=== PATIENT | female | born 1950 | race Caucasian/White ===

== ENCOUNTER 2020-02-08 15:40 | Outpatient (CLI) | payer MEDICARE, SELFPAY ==
--- NOTE | ~2020-02-08 | XR_ITS ---
XR knee LT 3V DATE: 02/08/2020 16:22 INDICATION: Left lateral knee pain for one month. No known injury. TECHNIQUE: 3 views COMPARISON: None FINDINGS: There is prominent distention of suprapatellar bursa consistent with knee joint effusion. N o fracture or dislocation, periosteal reaction or bone destruction, radiopaque intra-articular loose body or chondrocalcinosis is detected. There is minimal periarticular spurring of the patella. There is slight periarticular spurring at the medial compartment and minimal loss of height of medial compartment joint space. IMPRESSION: Prominent knee joint effusion Mild osteoarthritis Reviewed, dictated and finalized at location B.
--- NOTE | ~2020-02-08 | XR_ITS ---
XR shoulder RT min 2V DATE: 02/08/2020 16:21 INDICATION: Chronic right shoulder pain. Limited range of motion. No injury. TECHNIQUE: 4 views COMPARISON: None FINDINGS: Diffuse osteopenia. Osteoarthritis at the glenohumeral joint Osteopenia. Multiple old healed right rib fractures. Approximate 5 mm foreign body overlies the lateral right shoulder soft tissues. IMPRESSION: Right glenohumeral joint osteoarthritis Osteopenia Reviewed, dictated and finalized at location B.
== END 2020-02-08 15:41 | disposition home or self-care (01) ==
PROVIDERS: PCP Family Medicine
DX: M25.511 Pain in right shoulder (principal); G89.29 Other chronic pain; M25.462 Effusion, left knee; M17.12 Unilateral primary osteoarthritis, left knee; M85.861 Other specified disorders of bone density and structure, right lower leg
CPT/HCPCS: 73030; 73562

== ENCOUNTER 2024-10-18 10:27 | Emergency (ER) | payer MEDICARE, SELFPAY ==
[2024-10-18 10:52] VITALS: BP 130/105; PULSE 96; RESP 18; TEMP 36.5; O2SAT 97
[2024-10-18 12:00] LABS: Basophils Absolute Auto 0.1 K/mm3 (0.0-0.1); Basophils Percent Auto 0.4 % (0.2-1.2); Eosinophils Percent Auto 0.1 % (0-4.4); Hematocrit 39.7 % (37.0-47.0); Hemoglobin 13.6 g/dL (12.0-15.0); Immature Granulocyte Absolute 0.09 K/mm3 (0.00-0.031); Immature Granulocyte Percent A 0.5 % (0-0.5); Lymphocytes Absolute Auto 1.72 K/mm3 (0.9-3.2); Lymphocytes Percent Auto 9.8 % (18.3-44.2); Mean Corpuscular HGB Conc 34.3 g/dl (32-36); Mean Corpuscular Hemoglobin 29.4 pg (26-34); Mean Corpuscular Volume 85.9 fl (80-100); Mean Platelet Volume 9.4 fl (7.4-10.4); Monocytes Absolute Auto 1.5 K/mm3 (0.1-0.6); Monocytes Percent Auto 8.7 % (2.6-8.5); Neutrophils Absolute Auto 14.1 K/mm3 (1.3-6.7); Neutrophils Percent Auto 80.5 % (45.5-73.1); Platelet Count Result 387 k/mm3 (150-375); Red Blood Count 4.62 M/mm3 (4.2-5.4); Red Cell Distribution Width 13.2 % (11.5-14.5); White Blood Count 17.5 K/mm3 (4.5-10.0)
[2024-10-18 12:09] LABS: Alanine Aminotransferase 16 U/L (6-35); Albumin Level 4.4 g/dL (3.5-5.1); Alkaline Phosphatase 102 U/L (38-126); Anion Gap 8 mmol/L (4-12); Aspartate Amino Transferase 22 U/L (14-36); Bilirubin,Total 0.9 mg/dL (0.2-1.3); Blood Urea Nitrogen 7 mg/dL (7-17); Calcium 9.6 mg/dL (8.4-10.2); Carbon Dioxide 23 mmol/L (22-30); Chloride 104 mmol/L (98-107); Estimated CRCL calculation 56 ml/min; Estimated Glomerular Filt Rate > 60; Glucose 140 mg/dL (65-110); Potassium 3.6 mmol/L (3.4-5.0); Sodium 135 mmol/L (137-145)
--- NOTE | 2024-10-18 13:05 | ED.DENTAL ---
HPI - Dental/Oral General Chief complaint: Dental/Oral Stated complaint: broken tooth/ left eye swelling Time Seen by Provider: 10/18/24 12:28 Source: patient Mode of arrival: ambulatory Limitations: no limitations History of Present Illness HPI Narrative: Left upper gum dental pain started 6 months ago, unable to find a dentist. She denies any fever, chills, headache, trouble breathing or swallowing or vision change. Related Data Allergies Allergy/AdvReac Type Severity Reaction Status Date / Time No Known Allergies Allergy Verified 10/18/24 10:55 Review of Systems Review of Systems: All systems reviewed & are unremarkable except as noted in HPI and below Exam Narrative: General appearance: Well-developed, well-nourished Skin: Normal color Head: Normocephalic, nontraumatic Eyes: Clear conjunctiva ENT: Left upper gum showing diffuse swelling, no abscess formation, dental caries and fracture. Neck: Supple, nontender Chest and respiratory: Airway patent, no respiratory distress, no accessory muscle use Heart: Regular rate/rhythm Neurologic: Alert and oriented ?3, [employer] is normal as tested, no gross motor deficit Course Vital Signs Vital signs: Vital Signs Temperature 36.5 C 10/18/24 10:52 Pulse Rate 96 10/18/24 10:52 Respiratory Rate 18 10/18/24 10:52 Blood Pressure 130/105 H 10/18/24 10:52 Pulse Oximetry 97 10/18/24 10:52 Oxygen Delivery Room Air 10/18/24 10:52 Temperature 36.5 C 10/18/24 10:52 Pulse Rate 96 10/18/24 10:52 Respiratory Rate 18 10/18/24 10:52 Blood Pressure 130/105 H 10/18/24 10:52 Pulse Oximetry 97 10/18/24 10:52 Oxygen Delivery Room Air 10/18/24 10:52 MDM - Dental/Oral MDM Narrative Medical decision making narrative: Differential diagnosis include gingivitis, dental caries, infection Discharged home Flagyl and penicillin VK Differential Diagnosis Differential diagnosis: Likely other (As above) Lab Data 10/18/24 11:45 10/18/24 11:45 Labs: Lab Results 10/18/24 Range/Units 11:45 WBC 17.5 H (4.5-10.0) K/mm3 RBC 4.62 (4.2-5.4) M/mm3 Hgb 13.6 (12.0-15.0) g/dL Hct 39.7 (37.0-47.0) % MCV 85.9 (80-100) fl MCH 29.4 (26-34) pg MCHC 34.3 (32-36) g/dl RDW 13.2 (11.5-14.5) % Plt Count 387 H (150-375) k/mm3 MPV 9.4 (7.4-10.4) fl Immature Gran % (Auto) 0.5 (0-0.5) % Neut % (Auto) 80.5 H (45.5-73.1) % Lymph % (Auto) 9.8 L (18.3-44.2) % [place] % (Auto) 8.7 H (2.6-8.5) % Eos % (Auto) 0.1 (0-4.4) % Baso % (Auto) 0.4 (0.2-1.2) % Lymph # (Auto) 1.72 (0.9-3.2) K/mm3 [place] # (Auto) 1.5 H (0.1-0.6) K/mm3 Eos # (Auto) 0.0 (0-0.3) K/mm3 Baso # (Auto) 0.1 (0.0-0.1) K/mm3 Abs Immat Gran (auto) 0.09 H (0.00-0.031) K/mm3 Absolute Neuts (auto) 14.1 H (1.3-6.7) K/mm3 Absolute Nucleated RBC 0.000 (0.0-0.012) K/mm3 Nucleated RBC % 0.0 (0.0-0.2) % Sodium 135 L (137-145) mmol/L Potassium 3.6 (3.4-5.0) mmol/L Chloride 104 (98-107) mmol/L Carbon Dioxide 23 (22-30) mmol/L Anion Gap 8 (4-12) mmol/L BUN 7 (7-17) mg/dL Creatinine 0.70 (0.7-1.0) mg/dL Estim Creat Clear Calc 56 ml/min Estimated GFR > 60 (59 - ) Glucose 140 H (65-110) mg/dL Calcium 9.6 (8.4-10.2) mg/dL Total Bilirubin 0.9 (0.2-1.3) mg/dL AST 22 (14-36) U/L ALT 16 (6-35) U/L Alkaline Phosphatase 102 (38-126) U/L Total Protein 8.0 (6.3-8.2) g/dL Albumin 4.4 (3.5-5.1) g/dL Critical Care Time Critical Care Time Critical Care Time: No Discharge Plan Discharge Clinical Impression: Dental caries, Gingivitis, Fracture of tooth Patient Disposition: Home, Self-Care Condition: Stable Instructions: Antibiotic Form, Toothache (ED) Additional Instructions: Return if symptoms are worsening , call your dentist for appointment, take Tylenol, ibuprofen as as needed for aches and pain, continue home medications. Prescriptions: New penicillin V potassium 500 mg tablet 500 mg PO Q6H Qty: 40 0RF metronidazole 500 mg tablet 500 mg PO Q8H 7 Days Qty: 21 0RF Follow-up/Referrals: PHYSICIAN NOT ON STAFF,NONSTAFF [Primary Care Provider] - Stand Alone Forms: Work/School Release IP
[2024-10-18 13:52] VITALS: BP 144/85; PULSE 82; RESP 16; O2SAT 97
== END 2024-10-18 13:55 | disposition home or self-care (01) ==
PROVIDERS: Emergency Provider Emergency Medicine
DX: K02.9 Dental caries, unspecified (principal); K05.10 Chronic gingivitis, plaque induced; S02.5XXA Fracture of tooth (traumatic), initial encounter for closed fracture; X58.XXXA Exposure to other specified factors, initial encounter
CPT/HCPCS: 36415; 80053; 85025; 99283